=== PATIENT | male | born 1990 | race Caucasian/White ===

== ENCOUNTER 2016-10-29 13:09 | Emergency (ER) | payer OTHER ==
[~2016-10-29] VITALS: Ht 180.3 cm; Wt 127.0 kg
[~2016-10-29 13:09] MED LIST: ALBUTEROL INHAL17 GM IH; ALBUTEROL2.5 MG/32 IH; AUGMENTIN 875875 MG PO; BREO ELLIPTA 11 EACH IH; CIPROFLOXACIN500 M1 PO; CONTRAVE ER 8-1 EACH PO; DOXYCYCLINE 10100 MG PO; FLAGYL500 MG PO; GLUCOPHAGE1000 MG; IBUPROFEN 400400 M1; IBUPROFEN 600600 M1 PO; NOHOMEMEDICATIONS; NORCO 5-325 TA1 EACH PO; PREDNISONE 10 M10 M1 PO; PREDNISONE 20 M20 M1 PO; PREDNISONE 20 M20 MG PO; PREDNISONE50 MG PO; PRILOSEC 10MG C10 M1; PROVENTIL; PROVENTIL HFA6.7 G1 INH; THERAFLU COL245.5 ML; ZANTAC 7575 MG PO; ZOFRAN ODT4 MG PO; ZPAK PO
[2016-10-29 13:11] VITALS: BP 154/99
[2016-10-29] MEDS ORDERED: COMBIVENT RESPIM4 GM INH (13:16)
[2016-10-29] MEDS ORDERED: SYMBICORT160 MCG/4. INH (13:17)
[2016-10-29] MEDS ORDERED: ALBUTEROL2.5 MG/31 INH (14:24)
[2016-10-29] MEDS ORDERED: FLONASE 0.05%50 MCG NASAL (14:25)
== END 2016-10-29 14:41 | disposition home or self-care (01) ==
LOC: ER 13:09
DX: J45.909 Unspecified asthma, uncomplicated (principal); F17.210 Nicotine dependence, cigarettes, uncomplicated; F10.99 Alcohol use, unspecified with unspecified alcohol-induced disorder

== ENCOUNTER 2017-02-25 21:37 | Emergency (ER) | payer OTHER ==
[~2017-02-25] VITALS: Ht 177.8 cm; Wt 126.1 kg
[~2017-02-25 21:37] MED LIST changes: +ALBUTEROL2.5 MG/31 INH; +COMBIVENT RESPIM4 GM INH; +FLONASE 0.05%50 MCG NASAL; +SYMBICORT160 MCG/4. INH
[2017-02-25 22:04] LABS: URINE BILIRUBIN NEGATIVE (Negative); URINE BLOOD NEGATIVE (Negative); URINE CLARITY CLEAR; URINE COLOR YELLOW; URINE GLUCOSE-RANDOM* NEGATIVE (Negative); URINE KETONES NEGATIVE (Negative); URINE LEUKOCYTES NEGATIVE (Negative); URINE NITRITE NEGATIVE (Negative); URINE PROTEIN (DIPSTICK) NEGATIVE (Negative); URINE SPECIFIC GRAVITY 1.025 (1.005-1.035); URINE UROBILINOGEN 0.2 E.U./dl (0.2-1.0)
[2017-02-25 22:27] LABS: HEMATOCRIT 42.9 % (42.0-52.0); HEMOGLOBIN 14.5 gm/dL (14.0-18.0); MCH 30.3 pg (26.0-34.0); MCHC 33.9 g/dL (28.0-37.0); MCV 89.4 fL (80.0-100.0); PLATELET COUNT 430 thou/uL (150-400); RDW 13.7 % (10.5-14.5); WBC 18.1 thou/uL (4.0-11.0)
[2017-02-25 22:35] LABS: ANION GAP 8 mmol/L (7-16); BUN 13 mg/dL (7-18); CALCIUM 9.2 mg/dL (8.5-10.1); CHLORIDE 106 mmol/L (98-107); CO2 28 mmol/L (21-32); GLUCOSE 102 mg/dL (74-106); SODIUM 142 mmol/L (136-145)
[2017-02-25 22:41] LABS: ALBUMIN 3.7 g/dL (3.4-5.0); DIRECT BILIRUBIN < 0.1 mg/dL (<0.1-0.3); LIPASE 115 U/L (73-393); SGOT 21 U/L (15-37); SGPT 38 U/L (30-65); TOTAL BILIRUBIN 0.3 mg/dL (<0.1-1.0); TOTAL PROTEIN 7.7 g/dL (6.4-8.2)
[2017-02-25] MEDS ORDERED: ONDANSETRON HCL4 M2 PO (22:52)
[2017-02-25] MEDS ORDERED: CARAFATE 1 GM TA1 G1 PO (22:52)
[2017-02-25 22:53] LABS: ABSOLUTE NEUTROPHILS 15.7 thou/uL (1.4-8.2)
== END 2017-02-25 23:15 | disposition home or self-care (01) ==
LOC: ER 21:37
PROVIDERS: Nurse Practitioner
DX: K62.5 Hemorrhage of anus and rectum (principal); R10.9 Unspecified abdominal pain; R11.0 Nausea; F17.210 Nicotine dependence, cigarettes, uncomplicated; J45.909 Unspecified asthma, uncomplicated